=== PATIENT | male | born 1970 | race Caucasian/White ===

== ENCOUNTER 2018-08-21 16:29 | Observation (INO) ==
[2018-08-21] MEDS ORDERED: *HR* Morphine Immed Rel 30 MG TABLET PO STA (18:12)
[2018-08-21] MEDS ORDERED: *HR* HYDROmorphone (PF) 1 MG/ML SYRINGE IVP ONE (18:22)
--- NOTE | 2018-08-21 18:24 | Emergency Department Note ---
Disposition Clinical Impression: Scrotal swelling Disposition: Still a Patient Condition: Fair Referrals: NONE,PCP [Primary Care Provider] - Forms: ED Satisfaction Letter, Work/School Release Time of Disposition: 18:59 General Adult HPI - General Chief complaint: ED General Medical Stated complaint: increased pain s/p surg Time Seen by Provider: 08/21/18 17:22 Source: patient Limitations: no limitations - History of Present Illness Pain Scale: 10 - Related Data Previous Rx's Medication Instructions Recorded Docusate [Colace] 100 mg PO BID #60 capsule 08/20/18 Oxycodone HCl/Acetaminophen 1 each PO Q6H PRN 5 Days #25 tablet 08/20/18 [Percocet 5-325 mg Tablet] Allergies Allergy/AdvReac Type Severity Reaction Status Date / Time Penicillins AdvReac See Verified 08/20/18 07:33 Comments Past Medical History - Past Medical History Medical history: Reports: no medical history Surgical history: Reports: no surgical history Psychiatric history: Reports: no psych history - Social History Smoking Status: Current every day smoker Smokeless Tobacco Status: No Alcohol use: Reports: none Drug use: Reports: none, other Physical Exam - General Limitations: no limitations General appearance: alert, in no apparent distress Course - Reevaluation(s) Reevaluation #1: 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 Time: 18:58 Vital Signs Temperature 98.6 F 08/21/18 16:31 Pulse Rate 113 08/21/18 16:31 Respiratory Rate 18 08/21/18 16:31 Blood Pressure 140/79 08/21/18 16:31 O2 Sat by Pulse Oximetry 100 08/21/18 16:31 Temperature 98.6 F 08/21/18 16:31 Pulse Rate 107 08/21/18 17:16 Respiratory Rate 18 08/21/18 17:16 Blood Pressure 170/96 08/21/18 17:16 O2 Sat by Pulse Oximetry 100 08/21/18 17:16 Oxygen Delivery Oxygen Delivery Nasal Cannula Medical Decision Making - Lab Data Result diagrams: 08/21/18 18:31 Lab Results 08/21/18 Range/Units 18:31 WBC 12.4 H (4.3-11.1) K/mcL RBC 3.40 L (4.19-5.50) M/mcL Hgb 10.3 L (12.9-16.9) g/dL Hct 31.1 L (37.5-50.1) % MCV 91.5 (83.0-100.0) fL MCH 30.3 (28.0-33.3) pg MCHC 33.1 (31.6-35.5) g/dL RDW 14.1 (11.5-14.5) % Plt Count 214 (140-400) K/mcL MPV 10.8 (9.4-12.4) fL Immature Gran % 0.4 (0-4) % Seg Neutrophils % 77.4 % Lymphocytes % 9.4 % Monocytes % 12.1 % Eosinophils % 0.5 % Basophils % 0.2 % Neutrophils # 9.6 H (1.6-8.9) K/mcL Lymphocytes # 1.2 (0.6-4.6) K/mcL Monocytes # 1.5 H (0.0-1.3) K/mcL Eosinophils # 0.1 (0.0-0.6) K/mcL Basophils # 0.0 (0.0-0.2) K/mcL Attestation Statement - Attestation Attestation: I examined this patient and my medical decision-making was reviewed with the Resident Physician. I agree with the documented findings, disposition and treatment plan as described except to the extent set forth below. Patient presents to the etiology complaint testicular swelling. Patient is status post hydrocele surgery with Dr. Lion yesterday. Reports swelling and ecchymosis. Pain. Percocet is not helping. On examination he is in no acute distress. Mildly tachycardic. Significant swelling and ecchymosis to the right testicle. Plan. Discussed with urology. We will check ultrasound.
[2018-08-21 18:41] LABS: Basophils % 0.2 %; Eosinophils # 0.1 K/mcL (0.0-0.6); Eosinophils % 0.5 %; Hematocrit 31.1 % (37.5-50.1); Hemoglobin 10.3 g/dL (12.9-16.9); Immature Granulocytes % 0.4 % (0-4); Lymphocytes # 1.2 K/mcL (0.6-4.6); Lymphocytes % 9.4 %; Mean Corpuscular HGB Conc 33.1 g/dL (31.6-35.5); Mean Corpuscular Hemoglobin 30.3 pg (28.0-33.3); Mean Corpuscular Volume 91.5 fL (83.0-100.0); Mean Platelet Volume 10.8 fL (9.4-12.4); Monocytes # 1.5 K/mcL (0.0-1.3); Monocytes % 12.1 %; Neutrophils # 9.6 K/mcL (1.6-8.9); Platelet Count 214 K/mcL (140-400); Red Cell Distribution Width 14.1 % (11.5-14.5); Segmented Neutrophils % 77.4 %
--- NOTE | 2018-08-21 18:52 | Emergency Department Note ---
Disposition Clinical Impression: Scrotal swelling Disposition: Still a Patient Condition: Fair Referrals: NONE,PCP [Primary Care Provider] - Forms: ED Satisfaction Letter, Work/School Release General Adult HPI - General Chief complaint: ED General Medical Stated complaint: increased pain s/p surg Time Seen by Provider: 08/21/18 17:22 Source: patient Mode of arrival: ambulatory Limitations: no limitations Nursing Notes Reviewed: Yes Vital Signs Reviewed: Yes - History of Present Illness HPI Narrative: Patient is a 39-year-old male with a recent history of hydrocele surgery yesterday presents immersed department for evaluation of diffuse scrotal pain an d swelling. Patient states he underwent hydrocele repair yesterday with urology, Dr. Lion. He states that late last night began having cold sweats and swelling of his scrotum that has progressed overnight into today. States now scrotal swelling the size of the melena and he has large area of bruising on the right side of his scrotum. States the pain is severe. States it spoke with the urologist and recommended he come in to the ER for evaluation. States she has been urinating without difficulty. Pain Scale: 10 - Related Data Previous Rx's Medication Instructions Recorded Docusate [Colace] 100 mg PO BID #60 capsule 08/20/18 Oxycodone HCl/Acetaminophen 1 each PO Q6H PRN 5 Days #25 tablet 08/20/18 [Percocet 5-325 mg Tablet] Allergies Allergy/AdvReac Type Severity Reaction Status Date / Time Penicillins AdvReac See Verified 08/20/18 07:33 Comments All systems ED: reviewed and negative except as stated. Review of Systems: As Per HPI Constitutional: Denies: fever, chills Gastrointestinal: Denies: abdominal pain, nausea, vomiting, diarrhea, constipation Genitourinary: Reports: testicular pain (scrotal swelling). Denies: urgency, d ysuria, frequency, hematuria Musculoskeletal: Denies: back pain, neck pain Integumentary: Denies: rash Past Medical History - Past Medical History Attestation: Yes The following information was validated with the patient. Medical history: Reports: no medical history Surgical history: Reports: no surgical history Psychiatric history: Reports: no psych history - Social History Smoking Status: Current every day smoker Smokeless Tobacco Status: No Alcohol use: Reports: none Drug use: Reports: none, other Physical Exam CONSTITUTIONAL: Alert and oriented X3, appears to be in mild distress from pain. HEAD: Normocephalic; atraumatic. EYES: PERRL, no scleral icterus. NOSE: The nose is normal in appearance without rhinorrhea RESP: Normal chest excursion with respiration; breath sounds clear and equal bilaterally; no wheezes, rhonchi, or rales CARD: Regular rhythm, without murmurs, rub or gallop ABD: Non-distended; non-tender, soft,without rigidity, rebound or guarding : Patient has a large scrotum that is the size of a muscular male in with right-sided ecchymosis and diffuse tenderness as well as mild swelling of the penile shaft. He has a midline incision of the scrotum that appears to be healing appropriately with no surrounding erythema or discharge and no induration. SKIN: Normal for age and race; warm and dry; no apparent lesions - General Limitations: no limitations General appearance: alert, in no apparent distress Course Course Narrative: I discussed the patient's case with Dr. Lion, the urologist on-call and also the patient's surgeon he recommended a scrotal ultrasound to evaluate the fluid. States to call back with results. The patient is awaiting to undergo ultrasound receive IV pain medicine as well as basic labs. Patient agrees with this plan. Vital Signs Temperature 98.6 F 08/21/18 16:31 Pulse Rate 113 08/21/18 16:31 Respiratory Rate 18 08/21/18 16:31 Blood Pressure 140/79 08/21/18 16:31 O2 Sat by Pulse Oximetry 100 08/21/18 16:31 Temperature 98.6 F 08/21/18 16:31 Pulse Rate 107 08/21/18 17:16 Respiratory Rate 18 08/21/18 17:16 Blood Pressure 170/96 08/21/18 17:16 O2 Sat by Pulse Oximetry 100 08/21/18 17:16 Oxygen Delivery Oxygen Delivery Nasal Cannula Medical Decision Making - Medical Records Medical records reviewed: Yes I reviewed the patient's medical records. - Lab Data Result diagrams: 08/21/18 18:31 08/21/18 18:31 Lab Results 08/21/18 08/21/18 08/21/18 Range/Units 18:31 18:31 19:10 WBC 12.4 H (4.3-11.1) K/mcL RBC 3.40 L (4.19-5.50) M/mcL Hgb 10.3 L (12.9-16.9) g/dL Hct 31.1 L (37.5-50.1) % MCV 91.5 (83.0-100.0) fL MCH 30.3 (28.0-33.3) pg MCHC 33.1 (31.6-35.5) g/dL RDW 14.1 (11.5-14.5) % Plt Count 214 (140-400) K/mcL MPV 10.8 (9.4-12.4) fL Immature Gran % 0.4 (0-4) % Seg Neutrophils % 77.4 % Lymphocytes % 9.4 % Monocytes % 12.1 % Eosinophils % 0.5 % Basophils % 0.2 % Neutrophils # 9.6 H (1.6-8.9) K/mcL Lymphocytes # 1.2 (0.6-4.6) K/mcL Monocytes # 1.5 H (0.0-1.3) K/mcL Eosinophils # 0.1 (0.0-0.6) K/mcL Basophils # 0.0 (0.0-0.2) K/mcL Sodium 136 (136-145) mEq/L Potassium 4.1 (3.5-5.1) mEq/L Chloride 107 (98-107) mEq/L Carbon Dioxide 24 (23-29) mEq/L BUN 18 (6-20) mg/dL Creatinine 0.86 (0.70-1.30) mg/dL Est GFR ( Amer) > 60 (> 60) Est GFR (Non-Af Amer) > 60 (> 60) BUN/Creatinine Ratio 21 (6-26) Glucose 122 H (70-105) mg/dL Calculated Osmolality 285 (280-300) Calcium 8.3 L (8.6-10.3) mg/dL Urine Color Yellow (Yellow) Urine Clarity Clear (Clear) Urine pH 6.5 (5.0-8.0) pH Units Ur Specific [place] 1.025 (1.010-1.025) Urine Protein Trace (Neg-Trace) mg/dL Urine Glucose (UA) Normal (Normal) mg/dL Urine Ketones Negative (Negative) mg/dL Urine Blood Negative (Negative) Urine Nitrite Negative (Negative) Urine Bilirubin Negative (Negative) Urine Urobilinogen Normal (Normal) mg/dL Ur Leukocyte Esterase Negative (Negative) [place] Situation: Demographics, MOA Background: Presenting Complaint, Relevant PMH, Meds, & Allergies Assessment: Vital Signs, Course and respsone to treatment, Exam Concerns, Patient/Family Expectation, Pertinant Lab Results, Outstanding Labs Recommendation: Barrier(s) to disposition, Recommendation based on pending stud ies, treatments, or consults S.B.Emmie Report Given to: Clement Saxena Repor Time: 19:27
[2018-08-21 19:00] LABS: BUN/Creatinine Ratio 21 (6-26); Blood Urea Nitrogen 18 mg/dL (6-20); Calcium 8.3 mg/dL (8.6-10.3); Carbon Dioxide 24 mEq/L (23-29); Chloride 107 mEq/L (98-107); Glucose 122 mg/dL (70-105); Osmolality,Calculated 285 (280-300); Potassium 4.1 mEq/L (3.5-5.1); Sodium 136 mEq/L (136-145); eGFR For Non-African Americans > 60 (> 60)
--- NOTE | 2018-08-21 19:16 | Emergency Department Note ---
Disposition Clinical Impression: Scrotal swelling, Hematoma Disposition: Admitted As Inpatient Condition: Fair Referrals: NONE,PCP [Primary Care Provider] - Forms: ED Satisfaction Letter, Work/School Release Time of Disposition: 20:51 General Adult HPI - General Chief complaint: ED General Medical Stated complaint: increased pain s/p surg Time Seen by Provider: 08/21/18 17:22 Source: patient Mode of arrival: ambulatory Limitations: no limitations - History of Present Illness Pain Scale: 10 - Related Data Previous Rx's Medication Instructions Recorded Docusate [Colace] 100 mg PO BID #60 capsule 08/20/18 Oxycodone HCl/Acetaminophen 1 each PO Q6H PRN 5 Days #25 tablet 08/20/18 [Percocet 5-325 mg Tablet] Allergies Allergy/AdvReac Type Severity Reaction Status Date / Time Penicillins AdvReac See Verified 08/20/18 07:33 Comments Constitutional: Denies: fever, chills Gastrointestinal: Denies: abdominal pain, nausea, vomiting, diarrhea, constipation Genitourinary: Reports: testicular pain (scrotal swelling). Denies: urgency, dysuria, frequency, hematuria Musculoskeletal: Denies: back pain, neck pain Integumentary: Denies: rash Past Medical History - Past Medical History Medical history: Reports: no medical history Surgical history: Reports: no surgical history Psychiatric history: Reports: no psych history - Social History Smoking Status: Current every day smoker Smokeless Tobacco Status: No Alcohol use: Reports: none Drug use: Reports: none, other Physical Exam - General Limitations: no limitations General appearance: alert, in no apparent distress Course Vital Signs Temperature 98.6 F 08/21/18 16:31 Pulse Rate 113 08/21/18 16:31 Respiratory Rate 18 08/21/18 16:31 Blood Pressure 140/79 08/21/18 16:31 O2 Sat by Pulse Oximetry 100 08/21/18 16:31 Temperature 98.6 F 08/21/18 16:31 Pulse Rate 107 08/21/18 17:16 Respiratory Rate 18 08/21/18 17:16 Blood Pressure 170/96 08/21/18 17:16 O2 Sat by Pulse Oximetry 100 08/21/18 17:16 Oxygen Delivery Oxygen Delivery Nasal Cannula Medical Decision Making - Lab Data Lab results reviewed: Yes I reviewed the patient's lab results. Result diagrams: 08/21/18 18:31 08/21/18 18:31 Lab Results 08/21/18 08/21/18 08/21/18 Range/Units 18:31 18:31 19:10 WBC 12.4 H (4.3-11.1) K/mcL RBC 3.40 L (4.19-5.50) M/mcL Hgb 10.3 L (12.9-16.9) g/dL Hct 31.1 L (37.5-50.1) % MCV 91.5 (83.0-100.0) fL MCH 30.3 (28.0-33.3) pg MCHC 33.1 (31.6-35.5) g/dL RDW 14.1 (11.5-14.5) % Plt Count 214 (140-400) K/mcL MPV 10.8 (9.4-12.4) fL Immature Gran % 0.4 (0-4) % Seg Neutrophils % 77.4 % Lymphocytes % 9.4 % Monocytes % 12.1 % Eosinophils % 0.5 % Basophils % 0.2 % Neutrophils # 9.6 H (1.6-8.9) K/mcL Lymphocytes # 1.2 (0.6-4.6) K/mcL Monocytes # 1.5 H (0.0-1.3) K/mcL Eosinophils # 0.1 (0.0-0.6) K/mcL Basophils # 0.0 (0.0-0.2) K/mcL Sodium 136 (136-145) mEq/L Potassium 4.1 (3.5-5.1) mEq/L Chloride 107 (98-107) mEq/L Carbon Dioxide 24 (23-29) mEq/L BUN 18 (6-20) mg/dL Creatinine 0.86 (0.70-1.30) mg/dL Est GFR ( Amer) > 60 (> 60) Est GFR (Non-Af Amer) > 60 (> 60) BUN/Creatinine Ratio 21 (6-26) Glucose 122 H (70-105) mg/dL Calculated Osmolality 285 (280-300) Calcium 8.3 L (8.6-10.3) mg/dL Urine Color Yellow (Yellow) Urine Clarity Clear (Clear) Urine pH 6.5 (5.0-8.0) pH Units Ur Specific [place] 1.025 (1.010-1.025) Urine Protein Trace (Neg-Trace) mg/dL Urine Glucose (UA) Normal (Normal) mg/dL Urine Ketones Negative (Negative) mg/dL Urine Blood Negative (Negative) Urine Nitrite Negative (Negative) Urine Bilirubin Negative (Negative) Urine Urobilinogen Normal (Normal) mg/dL Ur Leukocyte Esterase Negative (Negative) Urine Microscopic RBC 0-3 (0-3) per hpf Urine Microscopic WBC 0-3 (0-3) per hpf Ur Squamous Epith Cells Few (None-Few) per lpf Urine Bacteria Few (None-Few) per hpf Hyaline Casts None Seen (None-Few) per lpf Ur Culture Indicated? NO (NO) - Radiology Data Radiology results reviewed: Yes I reviewed the patient's radiology results. Attestation Statement - Attestation Attestation: Care assumed from Dr. Harris at 19:00 pending scrotal US. Labs reviewed by me 20:47: US resulted. Call placed to urology environmental analyst to discuss findings 20:50: Dr. Lion recommends admission to the medicine service for planned surgical evacuation tomorrow.
[2018-08-21 19:21] LABS: Bilirubin,Urine Negative (Negative); Blood,Urine Negative (Negative); Clarity,Urine Clear (Clear); Color,Urine Yellow (Yellow); Glucose,Urine (UA) Normal (Normal); Ketones,Urine Negative (Negative); Leukocyte Esterase,Urine Negative (Negative); Nitrite,Urine Negative (Negative); PH,Urine 6.5 pH Units (5.0-8.0); Protein,Urine Trace mg/dL (Neg-Trace); Specific Gravity,Urine 1.025 (1.010-1.025); Urobilinogen,Urine Normal (Normal)
[2018-08-21 19:26] LABS: Hyaline Casts,Urine None Seen per lpf (None-Few); RBC,Urine 0-3 per hpf (0-3)
[2018-08-21 19:35] LABS: WBC,Urine 0-3 per hpf (0-3)
[2018-08-21 19:36] LABS: Bacteria,Urine Few per hpf (None-Few); Squamous Epithelial Cell,Urine Few per lpf (None-Few)
[2018-08-21] MEDS: Nicotine 21 MG PATCH.TD24 TD SCH (21:07)
[2018-08-21] MEDS ORDERED: Naloxone 0.4 MG/ML INJ IVP PRN (21:54)
--- NOTE | 2018-08-21 22:06 | Internal Med History&Physical ---
Date of Encounter: 08/21/18 Time of Encounter: 22:30 Internal Medicine - H&P: HPI Chief complaint: Scrotal hematoma Admitted From: Emergency Dept Plans for Post Hospital Care: Home History of present illness: Mr. Velasquez is a 47 year old male Patient presented to the emergency room after having recent hydrocele surgery t he day before with diffuse scrotal pain and swelling. He underwent hydrocele repair yesterday with Dr. Lion of urology. He states that last night he began having cold sweats and swelling of the scrotum that continued to progress. He is also had some bruising on the right side of his scrotum as well. In the emergency room, patient's white count was 12.4, hemoglobin 10.3. BMP was within normal limits. Patient's urinalysis was negative. Scrotal ultrasound was performed that showed no torsion, but did show scrotal enlargement, with hematomas. Emergency room contacted Dr. Lion and he recommended the patient be admitted and he would consult in the morning and likely take the renny ent for scrotal hematoma evacuation in the morning. Patient was given IV pain meds, with improvement in his pain. Upon my evaluation patient states that he still having some scrotal pain. He has been dealing with an enlarged scrotum for almost 2 years now. His symptoms did not improve with his home pain medication, and he almost came to the emergency room last night. Currently he denies nausea, vomiting, chest pain, diarrhea, constipation and abdominal pain. Past Med Surg Social Fam HX - Past Medical History Medical history: no medical history Psychiatric history: no psych history - Past Surgical History Surgical History: no surgical history Additional surgical history: Hydrocele - Social History Smoking Status: Current every day smoker Smokeless Tobacco Status: No Alcohol use: none Drug use: none, other Internal Medicine - H&P: Meds Docusate [Colace] 100 mg PO BID #60 capsule 08/20/18 [Rx] Oxycodone HCl/Acetaminophen [Percocet 5-325 mg Tablet] 1 each PO Q6H PRN 5 Days #25 tablet 08/20/18 [Rx] Allergy/AdvReac Type Severity Reaction Status Date / Time Penicillins AdvReac See Verified 08/20/18 07:33 Comments All Systems PM: A 10-system review of systems was performed and is negative for pertinent f indings except as documented above in the HPI. - Constitutional Vitals: Temp Pulse Resp BP Pulse Ox 98.6 F 107 20 144/91 100 08/21/18 16:31 08/21/18 17:16 08/21/18 21:45 08/21/18 21:45 08/21/18 17:16 General appearance: Present: cooperative, A&O X 3, pleasant, no acute distress, answers questions appropriately Exam: - - Head Head exam: Present: normal inspection - Eye Eye exam: Present: EOMI, normal appearance - Respiratory Respiratory exam: Present: CTAB. Absent: rales, respiratory distress, rhonchi, wheezes - Cardiovascular Cardiovascular exam: Present: RRR, tachycardia. Absent: diastolic murmur, systolic murmur - GI/Abdominal GI/Abdominal exam: Present: normal bowel sounds, soft. Absent: tenderness - exam: Present: scrotal swelling, testicular tenderness External exam: Present: ecchymosis, erythema, swelling Additional comments: Patient's scrotum is very enlarged, with bruising to the left and right thighs and to the scrotum. There is some bruising to the shaft of the penis as well. There is a midline scrotal incision that appears to be intact. No obvious bleeding from the wound noted. - Extremities Exam Extremities exam: Present: warm, radial pulses palpable and symmetrical. Absent: calf tenderness, pedal edema, tenderness - [place]ison Incision: Present: clean and dry, intact - Neurological Exam Neurological exam: Present: no focal deficits, strengths equal and symetr throughout. Absent: motor sensory deficit, facial droop, speech deficit - Skin Skin exam: Present: dry, normal color, warm Additional comments: Bruising to the thighs and scrotum as indicated above Internal Med - H&P Results - Labs CBC & Chem 7: 08/21/18 18:31 08/21/18 18:31 Labs: Short CBC 08/21/18 Range/Units 18:31 WBC 12.4 H (4.3-11.1) K/mcL Hgb 10.3 L (12.9-16.9) g/dL Hct 31.1 L (37.5-50.1) % Plt Count 214 (140-400) K/mcL Neutrophils # 9.6 H (1.6-8.9) K/mcL BMP 08/21/18 18:31 Sodium 136 Potassium 4.1 Chloride 107 Carbon Dioxide 24 BUN 18 Creatinine 0.86 Glucose 122 H Calcium 8.3 L Urine 08/21/18 Range/Units 19:10 Urine Color Yellow (Yellow) Urine Clarity Clear (Clear) Urine pH 6.5 (5.0-8.0) pH Units Ur Specific [place] 1.025 (1.010-1.025) Urine Protein Trace (Neg-Trace) mg/dL Urine Glucose (UA) Normal (Normal) mg/dL - Impressions ITS Impressions Scrotum Ultrasound 08/21/18 18:05 IMPRESSION: 1. No testicular torsion. 2. Scrotal enlargement due to complicated collections surrounding each testis. The appearance in part is likely related to hematomas given reported surgery yesterday. However, superimposed infection is not excluded given patchy hypervascularity. 3. No definite visualization of the epididymides, likely obscured by the above collections. Epididymitis is not excluded given hypervascularity along the periphery of each testis. D/ / Phil Holloway MD / Phil Holloway MD Interpreting Provider: Phil Holloway MD - Assessment and plan (1) Scrotal swelling Current Visit: Yes Status: Acute Assessment and plan: Patient had recent hydrocele surgery a day prior. Dr. Lion of urology has been consulted who performed surgery. He will see the patient in the morning, and likely take him to the OR for scrotal hematoma evacuation. Patient is anxious about his situation, and is experiencing scrotal pain. Pain management as required Urology consultation Nothing by mouth after midnight (2) History of recent surgery Current Visit: Yes Status: Acute Assessment and plan: Hydrocele surgery by urology one day ago. Management as above (3) Nicotine use disorder Current Visit: Yes Status: Acute Assessment and plan: Nicotine patch (4) DVT prophylaxis Current Visit: Yes Status: Acute Assessment and plan: SCDs - Time Spent With Patient Total time spent is greater than 50% in coordination of care (as documented) at patient's floor/unit and/or counseling patient: Greater than 35 minutes
[2018-08-22] MEDS ORDERED: Acetaminophen 325 MG TABLET PO PRN ×2 (00:27→21:33)
[2018-08-22] MEDS ORDERED: OXYCODONE Oral CONC 10 MG/0.5 ML ORAL.SYG SL PRN ×3 (00:27→21:33)
[2018-08-22] MEDS ORDERED: *HR* HYDROcodone/Acet 5/325 mg TABLET PO PRN (00:28)
[2018-08-22] MEDS: OXYCODONE Oral CONC 10 MG/0.5 ML ORAL.SYG SL PRN ×3 (00:43→11:29)
[2018-08-22 07:50] LABS: Hematocrit 28.9 % (37.5-50.1); Hemoglobin 9.7 g/dL (12.9-16.9); Mean Corpuscular HGB Conc 33.6 g/dL (31.6-35.5); Mean Corpuscular Hemoglobin 30.4 pg (28.0-33.3); Mean Corpuscular Volume 90.6 fL (83.0-100.0); Mean Platelet Volume 11.1 fL (9.4-12.4); Platelet Count 209 K/mcL (140-400); Red Blood Count 3.19 M/mcL (4.19-5.50)
[2018-08-22 07:55] LABS: Prothrombin Time 11.7 Seconds (9.4-12.1)
[2018-08-22 07:58] LABS: BUN/Creatinine Ratio 17 (6-26); Blood Urea Nitrogen 13 mg/dL (6-20); Calcium 8.4 mg/dL (8.6-10.3); Carbon Dioxide 24 mEq/L (23-29); Chloride 105 mEq/L (98-107); Glucose 110 mg/dL (70-105); Osmolality,Calculated 285 (280-300); Potassium 4.1 mEq/L (3.5-5.1); Sodium 137 mEq/L (136-145); eGFR For Non-African Americans > 60 (> 60)
--- NOTE | 2018-08-22 09:39 | Urology - Consult Note ---
Date of Encounter: 08/22/18 Time of Encounter: 09:37 - Assessment and Plan (1) Scrotal hematoma Current Visit: Yes Status: Acute Assessment and plan: 47-year-old man with a hematoma after a left hydrocelectomy. I recommend ranjan espana to the operating room today for a evacuation of scrotal hematoma and drain placement. I informed him of the risks of the surgery which include but are not limited to bleeding, infection, injuries to other structures, need for further procedures, recurrence, and the risk of anesthesia. He is willing to proceed. Continue nothing by mouth today. Urology CN:HPI Consult date: 08/22/18 Reason for consult Urology: Other (scrotal hematoma) History of present illness: 47-year-old man postoperative day #2 status post left hydrocelectomy returned to the emergency room yesterday with worsening ecchymosis and swelling of the left hemiscrotum. The swelling began shortly after surgery. No drain was left in place. He says he moved his bowels and began to have swelling afterwards. The swelling is about the same size as with the hydrocele was prior to surgery. He is having discomfort. It is located in the groin and scrotum. Pain medicine has improved his pain. The pain is achy. He was admitted for pain control. A scrotal ultrasound showed a large hematoma. Past Med Surg Social Fam HX - Past Medical History Medical history: no medical history Psychiatric history: no psych history - Past Surgical History Surgical History: no surgical history Additional surgical history: Hydrocele - Social History Smoking Status: Current every day smoker Smokeless Tobacco Status: No Alcohol use: none Drug use: none, other - Family History Father Living Status: Medications and Allergies Docusate [Colace] 100 mg PO BID #60 capsule 08/20/18 [Rx] Oxycodone HCl/Acetaminophen [Percocet 5-325 mg Tablet] 1 each PO Q6H PRN 5 Days #25 tablet 08/20/18 [Rx] Allergy/AdvReac Type Severity Reaction Status Date / Time Penicillins AdvReac See Verified 08/20/18 07:33 Comments Review of Systems - Constitutional no chills, no fever(s) - EENT Nose, mouth and throat: no dizziness - Cardiovascular no chest pain - Respiratory no dyspnea - Gastrointestinal no nausea, no vomiting - Genitourinary genital pain, no flank pain, no hematuria - Musculoskeletal no back pain - Integumentary no erythema, no rash - Neurological no weakness - Psychiatric no suicidal ideation - Hematologic/Lymphatic no easy bleeding - Allergic/Immunologic no wheezing Exam Initial Vital Signs Temp Pulse Resp BP Pulse Ox 98.6 F 113 18 140/79 100 08/21/18 16:31 08/21/18 16:31 08/21/18 16:31 08/21/18 16:31 08/21/18 16:31 - General physical appearance Present: well developed, well nourished, no distress - Eyes Absent: icteric - ENT Present: normal nares - Neck Present: trachea midline - Respiratory Present: normal respiratory effort - Cardiovascular Cardiovascular exam IM: RRR - Abdomen Abdomen: Present: soft - Genitourinary other (Significant ecchymosis around the scrotum extending bilaterally into the penis and right hemiscrotum. There is melon sized swelling to the left hemiscrotum) - Integumentary Present: no rash - Neurologic Present: normal coordination - Musculoskeletal Present: normal gait Urology Results - Labs 08/22/18 06:54 08/22/18 06:54 Abnormal lab results WBC 11.5 K/mcL (4.3-11.1) H 08/22/18 06:54 RBC 3.19 M/mcL (4.19-5.50) L 08/22/18 06:54 Hgb 9.7 g/dL (12.9-16.9) L 08/22/18 06:54 Hct 28.9 % (37.5-50.1) L 08/22/18 06:54 Neutrophils # 9.6 K/mcL (1.6-8.9) H 08/21/18 18:31 Monocytes # 1.5 K/mcL (0.0-1.3) H 08/21/18 18:31 Glucose 110 mg/dL (70-105) H 08/22/18 06:54 POC Glucose 113 mg/dL (70-99) H 08/22/18 05:46 Calcium 8.4 mg/dL (8.6-10.3) L 08/22/18 06:54 Diabetes panel 08/21/18 08/22/18 Range/Units 18:31 06:54 Sodium 136 137 (136-145) mEq/L Potassium 4.1 4.1 (3.5-5.1) mEq/L Chloride 107 105 (98-107) mEq/L Carbon Dioxide 24 24 (23-29) mEq/L BUN 18 13 (6-20) mg/dL Creatinine 0.86 0.77 (0.70-1.30) mg/dL Glucose 122 H 110 H (70-105) mg/dL Calcium 8.3 L 8.4 L (8.6-10.3) mg/dL Calcium panel 08/21/18 08/22/18 Range/Units 18:31 06:54 Calcium 8.3 L 8.4 L (8.6-10.3) mg/dL Pituitary panel 08/21/18 08/22/18 Range/Units 18:31 06:54 Sodium 136 137 (136-145) mEq/L Potassium 4.1 4.1 (3.5-5.1) mEq/L Chloride 107 105 (98-107) mEq/L Carbon Dioxide 24 24 (23-29) mEq/L BUN 18 13 (6-20) mg/dL Creatinine 0.86 0.77 (0.70-1.30) mg/dL Glucose 122 H 110 H (70-105) mg/dL Calcium 8.3 L 8.4 L (8.6-10.3) mg/dL Adrenal panel 08/21/18 08/22/18 Range/Units 18:31 06:54 Sodium 136 137 (136-145) mEq/L Potassium 4.1 4.1 (3.5-5.1) mEq/L Chloride 107 105 (98-107) mEq/L Carbon Dioxide 24 24 (23-29) mEq/L BUN 18 13 (6-20) mg/dL Creatinine 0.86 0.77 (0.70-1.30) mg/dL Glucose 122 H 110 H (70-105) mg/dL Calcium 8.3 L 8.4 L (8.6-10.3) mg/dL All other labs normal. - Imaging Additional studies: Scrotal ultrasound images were viewed and the report was reviewed. Consult Discharge Plan - Plan Referrals: NONE,PCP [Primary Care Provider] -
--- NOTE | 2018-08-22 12:40 | Anesthesia Evaluation PreOp ---
Date of Encounter: 08/22/18 Time of Encounter: 12:38 - Past History Planned Operation: Evac of scrotal hematoma Cardiac History: Hyperlipidemia Pulmonary History: Denies Any Significant HX [employer] History: Denies Any Significant HX Other Medical History: Denies Any Significant HX Anesthesia History: No Prior Anesthetic Complications, Past Anesthesia (hydrocelectomy) Alcohol Use: none Drug use: other (hx of meth and cocaine use, reports he has not used in over 6 weeks.) Medications and Allergies Docusate [Colace] 100 mg PO BID #60 capsule 08/20/18 [Rx] Oxycodone HCl/Acetaminophen [Percocet 5-325 mg Tablet] 1 each PO Q6H PRN 5 Days #25 tablet 08/20/18 [Rx] Allergy/AdvReac Type Severity Reaction Status Date / Time Penicillins AdvReac See Verified 08/20/18 07:33 Comments - Meds/Allergy Pre-op Review Medications Reviewed: Yes Allergies Reviewed: Yes Beta Blockers on Current Med List: No Anesthesia Results - Labs 08/22/18 06:54 08/22/18 06:54 Anesthesia Exam Vital Signs/O2 Sat, Most Current Temp Pulse Resp BP Pulse Ox 97.9 F 95 14 130/80 97 08/22/18 10:46 08/22/18 10:46 08/22/18 10:46 08/22/18 10:46 08/22/18 10:46 Height: 1 Weight: 1.78m NPO (# of Hours): 86kg - HEENT Pupil (Motor): Pupils equal, EOMI Mallampati: II Teeth: Poor dentition Oral Opening: Greater than 3 - [employer] LOC: Oriented [employer] Motor: Normal RUE, Normal LUE, Normal RLE, Normal LLE, Normal Face [employer] Sensory: Normal: RUE, LUE, RLE, LLE, Face - Cardiac Rhythm: Regular - Pulmonary Breath Sounds: bilateral Clear Respiratory Effort: Symmetrical Anesthesia Assess/Plan ASA Score: 2 Level of consciousness: Cooperative, Oriented Monitoring Plan: Standard Monitors Recovery Plan: PACU
--- NOTE | 2018-08-22 12:50 | Internal Med Progress Note ---
Hospitalist Progress Note - Encounter Date of Encounter: 08/22/18 Time of Encounter: 08:48 - Subjective Interval History: patient was seen and examined at bedside. he has no complaints, he is NPO for procedure. denies n/v/D, chest pain or SOB, pain is controlled - Exam Vitals: Temp Pulse Resp BP Pulse Ox 97.9 F 95 14 130/80 97 08/22/18 10:46 08/22/18 10:46 08/22/18 10:46 08/22/18 10:46 08/22/18 10:46 Exam: General: Patient is alert, oriented, no acute distress, Head: atraumatic, normocephalic, Eye: normal appearance, PERRL, no scleral icterus, no conjunctival injection Neck: normal inspection, trachea midline, full ROM, no carotid bruits Chest: normal inspection, symmetric chest rise Respiratory: Good respiratory effort. Bilateral breath sounds are clear without wheezing, crackles, or rhonchi. Cardiovascular: Regular rate and rhythm. s1 and s2 No clicks, rubs, gallops, or murmors. Abdomen: Bowel sounds present normoactive x-4 quadrants. Abdomen is soft, nondistended. no Epigastric tenderness. No guarding or rebound. No organomegaly noted, obese musculoskeletal: Spontaneously moving all extremities. no edema, no calf tenderness Skin: warm, dry, intact. : patient's scrotum is very enlarged, with bruising to the left and right thighs and to the scrotum. There is some bruising to the shaft of the penis as well. There is a midline scrotal incision that appears to be intact. No obvious bleeding from the wound noted. Neuro: Alert and oriented , no focal deficit Psych: Patient's affect is normal - - Assessment and Plan (1) Scrotal hematoma Current Visit: Yes Status: Acute Assessment and Plan: hematoma after a left hydrocelectomy urology on board for OR today NPO IVF pain management stool softeners. (2) History of hydrocelectomy Current Visit: Yes Status: Acute Assessment and Plan: s/p left hydrocelectomy. urology on board will follow (3) Nicotine use disorder Current Visit: Yes Status: Acute Assessment and Plan: nicotine patch was counseled (4) DVT prophylaxis Current Visit: Yes Status: Acute Assessment and Plan: scds - Time Spent with Patient Total time spent is greater than 50% in coordination of care (as documented) at patient's floor/unit and/or counseling patient: Internal Medicine: Result - Labs CBC & Chem 7: 08/22/18 06:54 08/22/18 06:54 Labs: Short CBC 08/21/18 08/22/18 Range/Units 18:31 06:54 WBC 12.4 H 11.5 H (4.3-11.1) K/mcL Hgb 10.3 L 9.7 L (12.9-16.9) g/dL Hct 31.1 L 28.9 L (37.5-50.1) % Plt Count 214 209 (140-400) K/mcL Neutrophils # 9.6 H (1.6-8.9) K/mcL BMP 08/21/18 08/22/18 18:31 06:54 Sodium 136 137 Potassium 4.1 4.1 Chloride 107 105 Carbon Dioxide 24 24 BUN 18 13 Creatinine 0.86 0.77 Glucose 122 H 110 H Calcium 8.3 L 8.4 L Urine 08/21/18 Range/Units 19:10 Urine Color Yellow (Yellow) Urine Clarity Clear (Clear) Urine pH 6.5 (5.0-8.0) pH Units Ur Specific [place] 1.025 (1.010-1.025) Urine Protein Trace (Neg-Trace) mg/dL Urine Glucose (UA) Normal (Normal) mg/dL - ABG Interpretation ABG results: PT/INR, D-dimer PT 11.7 Seconds (9.4-12.1) 08/22/18 06:54 - Impressions Impressions Scrotum Ultrasound 08/21/18 18:05 IMPRESSION: 1. No testicular torsion. 2. Scrotal enlargement due to complicated collections surrounding each testis. The appearance in part is likely related to hematomas given reported surgery yesterday. However, superimposed infection is not excluded given patchy hypervascularity. 3. No definite visualization of the epididymides, likely obscured by the above collections. Epididymitis is not excluded given hypervascularity along the periphery of each testis. D/ / Phil Holloway MD / Phil Holloway MD Interpreting Provider: Phil Holloway MD Consult Discharge Plan - Plan Referrals: NONE,PCP [Primary Care Provider] -
[2018-08-22] MEDS ORDERED: 0.9 % Sodium Chloride 1,000 ML IVC SCH ×2 (13:00→21:33)
[2018-08-22] MEDS ORDERED: ceFAZolin 2,000 MG in 0.9 % Sodium Chloride 100 ML IVPB ONE (17:00)
[2018-08-22] MEDS ORDERED: Famotidine 20 MG/2 ML VIAL ONE (19:33)
[2018-08-22] MEDS ORDERED: Acetaminophen IV 1,000 MG/100 ML INFUS..BTL ONE (19:33)
[2018-08-22] MEDS ORDERED: Lidocaine -MPF 2% 2 ML VIAL ONE (19:35)
[2018-08-22] MEDS ORDERED: *HR* FentaNYL (PF) 100 MCG/2 ML VIAL ONE (19:35)
[2018-08-22] MEDS ORDERED: *HR* Propofol 200 MG/20 ML VIAL IVP ONE (19:35)
[2018-08-22] MEDS ORDERED: Lidocaine 1% 20 ML MDV ONE (19:37)
[2018-08-22] MEDS ORDERED: *HR* Succinylcholine 200 MG/10 ML VIAL IVP ONE (20:08)
[2018-08-22] MEDS ORDERED: *HR* HYDROMORPHONE 2 MG/ML VIAL ONE (20:17)
[2018-08-22] MEDS ORDERED: Dexamethasone 4 MG/ML VIAL ONE (20:24)
[2018-08-22] MEDS ORDERED: Ondansetron 4 MG/2 ML VIAL ONE (20:24)
[2018-08-22] MEDS ORDERED: *HR* OxyCODONE Immed Rel 5 MG TABLET PO PRN (20:51)
[2018-08-22] MEDS ORDERED: *HR* FentaNYL (PF) 100 MCG/2 ML VIAL IVP PRN (20:51)
[2018-08-22] MEDS: Nicotine 21 MG PATCH.TD24 TD SCH (21:03)
--- NOTE | 2018-08-22 21:10 | Operative Note ---
Date of procedure: 08/22/18 Pre-op diagnosis: Scrotal hematoma Post-op diagnosis: same Procedure: Evacuation of scrotal hematoma, scrotal drain placement Implants: Abad drain Complications: None Anesthesia: MYLAA Surgeon: Daniel Lion Was there an housekeeper/laundry assistant present: No Estimated blood loss (cc): 3 Specimen: none Condition: stable Disposition: PACU Procedure in Detail: Indications: Mr. Velasquez underwent a left hydrocelectomy on 08/20/2018. After surgery he developed progressive scrotal swelling and ecchymosis. On 08/21/2018 he returned to the emergency department. A scrotal ultrasound showed a large hematoma. He was admitted. He elected to undergo evacuation of scrotal hematoma. He was informed of the risks of the surgery which include but are not limited to bleeding, infection, injury to other structures, need for further procedures, recurrence, and the risk of anesthesia. He is willing to proceed. Procedure: After informed consent was obtained the patient was brought back to the operating room and placed in the supine position. A timeout was performed. Gen. anesthesia was administered and a laryngeal mask airway was placed. His scrotum and lower abdomen were prepped and draped in a sterile fashion. The incision was opened using a scalpel. I was able to move through the dartos layer and opened the suture line there with Metzenbaum scissors. The hematoma was evacuated out. Approximate 600 mL of blood was evacuated from the scrotum. I did not see any distinct area of active bleeding along the spermatic cord or the dartos layer. The wound was irrigated. I cauterized along the cut edge of the tunica vaginalis. Hemostasis seemed adequate at this point. I irrigated the wound multiple times and did not see any blood welling into the irrigation. A stab wound was created in the dependent portion of the scrotum. A Abad drain was placed through this. It was secured to the skin using a 2-0 nylon suture. The testicle was brought back into the wound. A cord block was performed. The dartos was closed in a running fashion using 3-0 Vicryl suture. The skin was closed using a 4-0 Monocryl suture in a running horizontal mattress fashion. Skin was washed and dried. Bacitracin was applied to the wound. A 4 x 4 was rolled and placed over top of the wound. The scrotal skin was wrapped over top of this 4 x 4 and taped to itself. Dressings were applied to the Abad drain. The patient was then awakened from general anesthesia and brought to the recovery room in good condition. All sponge, needle, and instrument counts were correct.
[2018-08-22] MEDS ORDERED: Naloxone 0.4 MG/ML INJ IVP PRN (21:33)
[2018-08-22] MEDS: *HR* OxyCODONE/APAP 10/325 TABLET PO PRN (22:42)
--- NOTE | 2018-08-22 22:46 | Anesthesia Evaluation Post Op ---
Date of Encounter: 08/22/18 Time of Encounter: 21:00 - Vital Signs Vital Signs: Vital Signs/O2 Sat/Glucose, Most Current Temp Pulse Resp BP Pulse Ox 08/22/18 22:25 97.8 F 107 16 155/92 93 08/22/18 21:55 98.3 F 105 16 123/81 92 08/22/18 21:35 109 18 136/98 93 08/22/18 21:25 105 13 135/78 94 08/22/18 21:15 110 17 129/95 93 08/22/18 21:05 98.6 F 99 16 119/82 94 - Lungs Lungs: Clear Ascult./Percussion - Airway Airway: Non-obstructed - Cardiovascular Regular Rate - Mental Status Mental Status: Alert & Oriented, Answers Appropriately - Pain Pain Scale: 0 - Nausea Vomiting Nausea Vomiting: Not Present - Hydration Hydration: Ice chips - Discharge PostOp Status: Transfer Patient to floor
[2018-08-23] MEDS: *HR* OxyCODONE/APAP 10/325 TABLET PO PRN (04:40)
[2018-08-23 05:40] LABS: Hematocrit 28.2 % (37.5-50.1); Hemoglobin 9.3 g/dL (12.9-16.9); Mean Corpuscular Hemoglobin 30.2 pg (28.0-33.3); Mean Corpuscular Volume 91.6 fL (83.0-100.0); Mean Platelet Volume 10.6 fL (9.4-12.4); Platelet Count 199 K/mcL (140-400); Red Blood Count 3.08 M/mcL (4.19-5.50); Red Cell Distribution Width 13.5 % (11.5-14.5)
[2018-08-23 06:23] VITALS: BP 118/76
--- NOTE | 2018-08-23 07:18 | Urology Progress Note ---
Date of Encounter: 08/23/18 Time of Encounter: 07:16 - Assessment and Plan (1) Scrotal hematoma Current Visit: Yes Status: Acute Assessment and plan: Postoperative day #1 status post scrotal hematoma evacuation. 1. Anticipate DC home today. 2. He can follow up with me in 1-2 weeks for a postoperative check and drain removal. 3. Consider oxycodone 10 mg by mouth every 6 hours upon discharge for pain control. 4. Okay to provide 1 week off from work or more per his request. Progress Note Narrative: Postop day #1 status post scrotal hematoma evacuation. He says he is feeling better now. The pressure has relieved. He is draining a lot of fluid from the Singer drain. Objective Initial Vital Signs Temp Pulse Resp BP Pulse Ox 98.6 F 113 18 140/79 100 08/21/18 16:31 08/21/18 16:31 08/21/18 16:31 08/21/18 16:31 08/21/18 16:31 - General physical appearance Present: well developed, well nourished, no distress - Respiratory Present: normal respiratory effort - Abdomen Present: soft - Genitourinary Present: other (Singer was serosanguineous drainage. Ecchymosis is stable over the scrotum and groin folds.) - Labs 08/23/18 05:23 08/22/18 06:54 Diabetes panel 08/22/18 Range/Units 06:54 Sodium 137 (136-145) mEq/L Potassium 4.1 (3.5-5.1) mEq/L Chloride 105 (98-107) mEq/L Carbon Dioxide 24 (23-29) mEq/L BUN 13 (6-20) mg/dL Creatinine 0.77 (0.70-1.30) mg/dL Glucose 110 H (70-105) mg/dL Calcium 8.4 L (8.6-10.3) mg/dL Calcium panel 08/22/18 Range/Units 06:54 Calcium 8.4 L (8.6-10.3) mg/dL Pituitary panel 08/22/18 Range/Units 06:54 Sodium 137 (136-145) mEq/L Potassium 4.1 (3.5-5.1) mEq/L Chloride 105 (98-107) mEq/L Carbon Dioxide 24 (23-29) mEq/L BUN 13 (6-20) mg/dL Creatinine 0.77 (0.70-1.30) mg/dL Glucose 110 H (70-105) mg/dL Calcium 8.4 L (8.6-10.3) mg/dL Adrenal panel 08/22/18 Range/Units 06:54 Sodium 137 (136-145) mEq/L Potassium 4.1 (3.5-5.1) mEq/L Chloride 105 (98-107) mEq/L Carbon Dioxide 24 (23-29) mEq/L BUN 13 (6-20) mg/dL Creatinine 0.77 (0.70-1.30) mg/dL Glucose 110 H (70-105) mg/dL Calcium 8.4 L (8.6-10.3) mg/dL Consult Discharge Plan - Plan Referrals: NONE,PCP [Primary Care Provider] -
--- NOTE | 2018-08-23 09:01 | Discharge Summary ---
- NOTES TO OUTPATIENT PROVIDER Notes to Outpatient Provider: follow up with urology as OP. CBC rechecked in 1 week. Date of Encounter: 08/23/18 Time of Encounter: 08:58 - Discharge Diagnosis (1) Scrotal hematoma Priority: Primary Status: Acute (2) History of hydrocelectomy Priority: Secondary Status: Acute (3) Nicotine use disorder Priority: Secondary Status: Acute (4) DVT prophylaxis Priority: Secondary Status: Acute Hospital course: "Mr. Velasquez is a 47 year old male Patient presented to the emergency room after having recent hydrocele surgery the day before with diffuse scrotal pain and swelling. He underwent hydrocele repair yesterday with Dr. Lion of urology. He states that last night he began having cold sweats and swelling of the scrotum that continued to progress. He is also had some bruising on the right side of his scrotum as well. In the emergency room, patient's white count was 12.4, hemoglobin 10.3. BMP was within normal limits. Patient's urinalysis was negative. Scrotal ultrasound was performed that showed no torsion, but did show scrotal enlargement, with hematomas. Emergency room contacted Dr. Lion and he recommended the patient be admitted and he would consult in the morning and likely take the patient for scrotal hematoma evacuation in the morning. Patient was given IV pain meds, with improvement in his pain. Upon my evaluation patient states that he still having some scrotal pain. He has been dealing with an enlarged scrotum for almost 2 years now. His symptoms did not improve with his home pain medication, and he almost came to the emergency room last night. Currently he denies nausea, vomiting, chest pain, diarrhea, constipation and abdominal pain." patient presented with above presentation. he was taken to the OP on by urology and is s/p scrotal hematoma evacuation. he is to [facility] with urology for drain removal. pain was controlled and he was prescribed with percocets by urology team on 08/20 which he had filled. he is to follow up with urology as OP. H/H and vitals remained stable through out admission. to have cbc rechecked by PCP in 1 week. post surgical restriction discussed by urology team. he was counseled on smoking cessation. Discharge discussed with: patient, nurse, image consultant Time spent discussing smoking cessation with patient: more than 10 minutes - Time Spent with Patient Total time spent providing and/or coordinating discharge services: Less than 30 minutes - Discharge Medications Prescriptions: Oxycodone HCl [Oxycontin] 10 mg PO BID PRN 1 Days #2 tab.er.12h PRN Reason: Pain Home Medications: Docusate [Colace] 100 mg PO BID #60 capsule 08/20/18 [Rx] Oxycodone HCl/Acetaminophen [Percocet 5-325 mg Tablet] 1 each PO Q6H PRN 5 Days #25 tablet 08/20/18 [Rx] Oxycodone HCl [Oxycontin] 10 mg PO BID PRN 1 Days #2 tab.er.12h 08/23/18 [Rx] Allergies/Adverse Reactions: Allergy/AdvReac Type Severity Reaction Status Date / Time Penicillins AdvReac See Verified 08/20/18 07:33 Comments Date of admission: 08/21/18 21:24 Primary care physician: PCP NONE Consults: 08/21/18 21:10 Consult to Urology [CONS] Stat Consulting Provider: [facility] Reason for Consult: scrotal hematomas - post op Time Notified: 21:10 Call Completed: Yes - Constitutional Vitals: Temp Pulse Resp BP Pulse Ox 98.0 F 93 15 118/76 96 08/23/18 06:22 08/23/18 06:22 08/23/18 06:22 08/23/18 06:22 08/23/18 06:22 General appearance: Present: cooperative, A&O X 3, pleasant, no acute distress, answers questions appropriately Exam: General: Patient is alert, oriented, no acute distress, Head: atraumatic, normocephalic, Eye: normal appearance, PERRL, no scleral icterus, no conjunctival injection Neck: normal inspection, trachea midline, full ROM, no carotid bruits Chest: normal inspection, symmetric chest rise Respiratory: Good respiratory effort. Bilateral breath sounds are clear without wheezing, crackles, or rhonchi. Cardiovascular: Regular rate and rhythm. s1 and s2 No clicks, rubs, gallops, or murmors. Abdomen: Bowel sounds present normoactive x-4 quadrants. Abdomen is soft, nondistended. no Epigastric tenderness. No guarding or rebound. No organomegaly noted, obese musculoskeletal: Spontaneously moving all extremities. no edema, no calf tenderness Skin: warm, dry, intact. Abad was serosanguineous drainage. Ecchymosis is stable over the scrotum and groin folds. Neuro: Alert and oriented , no focal deficit Psych: Patient's affect is normal - - Patient Status Disposition: Home, Self-Care Condition: Fair Functional capacity at discharge: independent ambulation Overall status at discharge: patient is progressing back to baseline - Discharge Instructions Follow Up With: NONE,PCP [Primary Care Provider] - - Diet and Activity Activity: increase activity as tolerated (with post surgical restroiction discussed by urology ) Diet: advance to your usual diet
== END 2018-08-23 10:22 | disposition home or self-care (01) ==
LOC: EMEROOARM 16:29 → 3ANU 16:29
PROVIDERS: ADMIT Family Medicine; ATTEND Family Medicine